=== PATIENT | female | born 1985 | race Caucasian/White ===

== ENCOUNTER → 2019-01-11 | Outpatient (CLI) | payer BC | END | disposition home or self-care (01) | LOC: LABWHC1 12:26 | PROVIDERS: ATTEND Obstetrics & Gynecology Obstetrics | DX: O20.0 Threatened abortion (principal) | CPT/HCPCS: 36415; 84702; 86850; 86900; 86901 ==

== ENCOUNTER → 2019-01-13 | Outpatient (CLI) | payer BC | LOC: LABWHC1 11:15 | PROVIDERS: ATTEND Obstetrics & Gynecology Obstetrics | DX: O20.0 Threatened abortion (principal) | CPT/HCPCS: 36415; 84702 ==

== ENCOUNTER 2019-01-21 16:17 | Emergency (ER) | payer BC ==
[2019-01-21 16:27] VITALS: BP 133/84; PULSE 90; RESP 18; TEMP 98.2
--- NOTE | 2019-01-21 17:42 | US ---
EXAMINATION TYPE: Transabdominal DATE OF EXAM: 01/21/2019 5:30 PM COMPARISON: NONE CLINICAL HISTORY: pain, bleeding, . Positive beta-hCG test. Patient had ultrasound performed at securities analyst office where they saw the baby and a heartbeat prior EXAM PERFORMED: EXAM MEASUREMENTS: GESTATIONAL AGE / DATING Physician Established: Not yet established Dates by LMP: (8 weeks/3 days) EDC: 08/29/18 Dates by First Scan: No previous available Dates by Current Scan for: No IUP seen at this time MATERNAL ANATOMY Uterus: 8.1 x 4.2 x 4.7cm Right Ovary: 2.8 x 1.7 x 2.0cm Left Ovary: not visualized Post CDS / Adnexa: wnl Presence of free fluid: no GESTATION / SURVEY IUP: No IUP seen at this time, probable demise Thick endo with probable clot seen in RODOLFO. Date of LMP: 11/23/18 Beta HcG (if available): Heterogeneous uterus with endometrium thickened up to 19 mm. No gestational sac, yolk sac, or p ole identified. No free fluid in pelvic cul-de-sac. Right ovary is seen. Left ovary not identified. No concerning adnexal masses seen. IMPRESSION: Given history of positive live IUP in OB office, ultrasound findings support the diagnosi s of intrauterine demise.
--- NOTE | 2019-01-21 17:44 | ED ---
Female Urogenital HPI - General Chief complaint: Vaginal Bleeding Stated complaint: 6 1/2 WEEKS AND BLEEDING Time Seen by Provider: 01/21/19 16:39 Source: patient, RN notes reviewed Mode of arrival: ambulatory Limitations: no limitations - History of Present Illness Initial comments: This is a 33-year-old female presents emergency Department chief complaint of vaginal bleeding early . Patient is seen /Dr lemus states that she has had 2 ultrasounds, lab work. Patient is O+ blood type on labs. Patient had an ultrasound on which showed heart activity. Patient had some brownish discharge on Wednesday states that she called Dr. Lemus was not concerned. Patient started having worsening cramping, bleeding today. She has passed a few clots. Patient is A0 currently approximately 6 weeks . - Related Data Allergies Allergy/AdvReac Type Severity Reaction Status Date / Time cephalexin [From Keflex] Allergy Rash/Hives Verified 01/21/19 16:23 iodine Allergy Anaphylaxis Verified 01/21/19 16:23 Quinolones Allergy Swelling Verified 01/21/19 16:23 Review of Systems ROS Statement: Those systems with pertinent positive or pertinent negative responses have been documented in the HPI. ROS Other: All systems not noted in ROS Statement are negative. Past Medical History Past Medical History: No Reported History History of Any Multi-Drug Resistant Organisms: None Reported Past Surgical History: Tonsillectomy Additional Past Surgical History / Comment(s): L knee osteotomy Past Psychological History: Anxiety Smoking Status: Never smoker Past Alcohol Use History: None Reported Past Drug Use History: None Reported General Exam Limitations: no limitations General appearance: alert, in no apparent distress Head exam: Present: atraumatic, normocephalic, normal inspection Neck exam: Present: normal inspection. Absent: tenderness, meningismus, ly mphadenopathy Respiratory exam: Present: normal lung sounds bilaterally. Absent: respiratory distress, wheezes, rales, rhonchi, stridor Cardiovascular Exam: Present: regular rate, normal rhythm, normal heart sounds. Absent: systolic murmur, diastolic murmur, rubs, gallop, clicks GI/Abdominal exam: Present: soft, tenderness (Mild suprapubic), normal bowel sounds. Absent: distended, guarding, rebound, rigid Back exam: Absent: CVA tenderness (R), CVA tenderness (L) Course Vital Signs 01/21/19 16:24 Temperature 98.2 F Pulse Rate 90 Respiratory 18 Rate Blood Pressure 133/84 O2 Sat by Pulse 100 Oximetry Medical Decision Making - Medical Decision Making Ultrasound shows demise is no heart activity as she had this on prior ultrasound. HCG has dropped from 9000 - 7000. Patient is having a moderate amount of cramping type pain but not excessive bleeding at this time. She will be given pain medication she is advised to contact her LAUNDROMAT MANAGER and return for any worsening symptoms. - Lab Data Lab Results 01/21/19 Range/Units 17:05 HCG, Quant 7817.5 mIU/mL Disposition Clinical Impression: Miscarriage Disposition: HOME SELF-CARE Condition: Stable Instructions (If sedation given, give patient instructions): Miscarriage (ED) Additional Instructions: Please return to the Emergency Department if symptoms worsen or any other concerns. Is patient prescribed a controlled substance at d/c from ED?: No Referrals: Nanci Bhatia MD [Primary Care Provider] - 1-2 days Time of Disposition: 17:48
[2019-01-21] MEDS ORDERED: HYDROmorphone 1 MG/ML 1 ML SYRINGE IM STA (17:47)
[2019-01-21] MEDS ORDERED: ACET/COD 300 MG/30 MG STARTER PACK 6 TAB BTL PO STA (17:47)
== END 2019-01-21 17:58 | disposition home or self-care (01) ==
LOC: EC 16:17
DX: O03.9 Complete or unspecified spontaneous abortion without complication (principal); Z3A.01 Less than 8 weeks gestation of pregnancy; Z88.1 Allergy status to other antibiotic agents; Z91.048 Other nonmedicinal substance allergy status
CPT/HCPCS: 36415; 84702; 76801; 76817; 99284; 96372; J1170

== ENCOUNTER → 2019-01-27 | Outpatient (CLI) | payer BC | LOC: LABWHC1 14:00 | PROVIDERS: ATTEND Obstetrics & Gynecology Obstetrics | DX: O03.9 Complete or unspecified spontaneous abortion without complication (principal) | CPT/HCPCS: 36415; 84702 ==

== ENCOUNTER → 2019-02-23 | Outpatient (CLI) | payer BC | END | disposition home or self-care (01) | LOC: LABWHC1 10:38 | PROVIDERS: ATTEND Obstetrics & Gynecology Obstetrics | DX: O02.1 Missed abortion (principal) | CPT/HCPCS: 36415; 84702 ==

== ENCOUNTER → 2019-12-13 | Outpatient (CLI) | payer BC | END | disposition home or self-care (01) | LOC: LABWHC1 14:16 | PROVIDERS: ATTEND Obstetrics & Gynecology Obstetrics | DX: N92.5 Other specified irregular menstruation (principal) | CPT/HCPCS: 36415; 84144; 84702 ==

== ENCOUNTER → 2019-12-15 | Outpatient (CLI) | payer BC | END | disposition home or self-care (01) | LOC: LABWHC1 14:54 | PROVIDERS: ATTEND Obstetrics & Gynecology Obstetrics | DX: N92.5 Other specified irregular menstruation (principal) | CPT/HCPCS: 36415; 84702 ==

== ENCOUNTER → 2019-12-21 | Outpatient (CLI) | payer BC | END | disposition home or self-care (01) | LOC: LABWHC1 13:55 | PROVIDERS: ATTEND Obstetrics & Gynecology Obstetrics | DX: O20.0 Threatened abortion (principal) | CPT/HCPCS: 36415; 84144; 84702 ==

== ENCOUNTER → 2020-01-24 | Outpatient (CLI) | payer BC | END | disposition home or self-care (01) | LOC: LABWHC1 12:10 | PROVIDERS: ATTEND Obstetrics & Gynecology Obstetrics | DX: Z03.818 Encounter for observation for suspected exposure to other biological agents ruled out (principal); Z20.828 Contact with and (suspected) exposure to other viral communicable diseases | CPT/HCPCS: 87502; U0003; C9803 ==

== ENCOUNTER 2020-05-09 11:00 | Outpatient (CLI) | payer BC ==
[2020-05-09] MEDS ORDERED: LACTATED RINGERS 1,000 ML IV SCH (11:45)
[2020-05-09 12:22] LABS: Appearance,Urine Clear (Clear); Bilirubin,Urine Negative (Negative); Blood,Urine Negative (Negative); Color,Urine Yellow; Glucose,Urine (UA) Negative (Negative); Ketones,Urine Negative (Negative); Leukocyte Esterase,Urine Negative (Negative); Nitrite,Urine Negative (Negative); Protein,Urine Negative (Negative); Specific Gravity,Urine 1.006 (1.001-1.035); Urobilinogen,Urine <2.0 mg/dL (<2.0)
[2020-05-09 12:29] LABS: Basophils % (A) 0 %; Eosinophils # (A) 0.2 k/uL (0-0.7); Eosinophils % (A) 2 %; HCT 40.6 % (34.0-46.0); HGB 13.5 gm/dL (11.4-16.0); Lymphocytes % (A) 17 %; MCH 29.7 pg (25.0-35.0); MCHC 33.3 g/dL (31.0-37.0); MCV 89.3 fL (80.0-100.0); Mean Platelet Volume 7.8; Monocytes # (A) 0.3 k/uL (0-1.0); Monocytes % (A) 3 %; Neutrophils # (A) 8.8 k/uL (1.3-7.7); Neutrophils % (A) 77 %; Platelet Count 265 k/uL (150-450); RBC 4.54 m/uL (3.80-5.40); RDW 14.2 % (11.5-15.5); WBC 11.5 k/uL (3.8-10.6)
[2020-05-09 12:32] LABS: ALT 19 U/L (4-34); AST 23 U/L (14-36); African American GFR (CKD) >90 (>60 ml/min/1.73 sqM); Albumin 3.5 g/dL (3.5-5.0); Alkaline Phosphatase 78 U/L (38-126); Anion Gap 8 mmol/L; Blood Urea Nitrogen 10 mg/dL (7-17); Calcium 8.8 mg/dL (8.4-10.2); Carbon Dioxide 20 mmol/L (22-30); Chloride 104 mmol/L (98-107); Glucose 107 mg/dL (74-99); Non-African American GFR(CKD) >90 (>60 ml/min/1.73 sqM); Potassium 4.3 mmol/L (3.5-5.1); Sodium 132 mmol/L (137-145); Total Bilirubin 0.3 mg/dL (0.2-1.3); Total Protein 6.3 g/dL (6.3-8.2)
[2020-05-09 13:33] VITALS: RESP 16; TEMP 98.2
[2020-05-09 13:35] VITALS: BP 114/56; PULSE 83
== END 2020-05-09 13:42 | disposition home or self-care (01) ==
LOC: FBPOP 11:00
PROVIDERS: ATTEND Obstetrics & Gynecology Obstetrics
DX: O21.9 Vomiting of pregnancy, unspecified (principal); Z3A.00 Weeks of gestation of pregnancy not specified
CPT/HCPCS: 80053; 81003; 85025; 96360; 99215

== ENCOUNTER 2020-05-22 15:15 | Emergency (ER) | payer BC ==
[2020-05-22 15:23] VITALS: TEMP 98.1
[2020-05-22 15:43] LABS: Basophils % (A) 0 %; Eosinophils # (A) 0.1 k/uL (0-0.7); Eosinophils % (A) 2 %; HCT 41.5 % (34.0-46.0); HGB 14.5 gm/dL (11.4-16.0); Lymphocytes # (A) 1.7 k/uL (1.0-4.8); Lymphocytes % (A) 28 %; MCH 30.9 pg (25.0-35.0); MCHC 34.9 g/dL (31.0-37.0); MCV 88.7 fL (80.0-100.0); Mean Platelet Volume 7.7; Monocytes # (A) 0.4 k/uL (0-1.0); Monocytes % (A) 6 %; Neutrophils # (A) 3.8 k/uL (1.3-7.7); Neutrophils % (A) 62 %; Platelet Count 207 k/uL (150-450); RBC 4.67 m/uL (3.80-5.40); RDW 13.9 % (11.5-15.5); WBC 6.1 k/uL (3.8-10.6)
[2020-05-22 15:54] LABS: ALT 25 U/L (4-34); AST 29 U/L (14-36); African American GFR (CKD) >90 (>60 ml/min/1.73 sqM); Albumin 3.5 g/dL (3.5-5.0); Alkaline Phosphatase 72 U/L (38-126); Anion Gap 5 mmol/L; Blood Urea Nitrogen 5 mg/dL (7-17); Calcium 8.6 mg/dL (8.4-10.2); Carbon Dioxide 24 mmol/L (22-30); Chloride 104 mmol/L (98-107); Glucose 99 mg/dL (74-99); LDH 396 U/L (313-618); Magnesium 1.7 mg/dL (1.6-2.3); Non-African American GFR(CKD) >90 (>60 ml/min/1.73 sqM); Potassium 4.5 mmol/L (3.5-5.1); Sodium 133 mmol/L (137-145); Total Bilirubin 0.4 mg/dL (0.2-1.3); Total Protein 6.4 g/dL (6.3-8.2)
[2020-05-22 16:04] LABS: D-Dimer 0.57 mg/L FEU (<0.60); INR 0.8 (<1.2); Prothrombin Time 9.3 sec (9.0-12.0)
[2020-05-22] MEDS ORDERED: BAMLANIVIMAB (EUA) 700 MG, ETESEVIMAB (EUA) 1,400 MG in SODIUM CHLORIDE 0.9% 50 ML IVPB ONE (17:00)
--- NOTE | 2020-05-22 17:21 | ED ---
SOB HPI - General Chief Complaint: Shortness of Breath Stated Complaint: Sob/Covid+/27 wks preg Source: patient Mode of arrival: ambulatory Limitations: no limitations - History of Present Illness Initial Comments: Patient is a 34-year-old female with past medical history of MTHFR who presents to the emergency department with reported positive Covid test. Patient is a nurse in the emergency room. Reports that on Wednesday she began having "sinus symptoms". Also reports that she lost her sense of smell. She was tested today at her facility came back positive for covid. She does see a high risk v belt coverer out of [place] - Dr. Erik Toth. Reportedly called him who re commended that she receive monoclonal antibody treatment. Patient denies shortness of breath or chest pain. No lower externally swelling. No history of DVT or PE. Denies fevers. No nausea or vomiting. No other alleviating, precipitating or modifying factors - Related Data Allergies Allergy/AdvReac Type Severity Reaction Status Date / Time cephalexin [From Keflex] Allergy Rash/Hives Verified 01/21/19 16:23 iodine Allergy Anaphylaxis Verified 01/21/19 16:23 Quinolones Allergy Swelling Verified 01/21/19 16:23 Review of Systems ROS Statement: Those systems with pertinent positive or pertinent negative responses have been documented in the HPI. ROS Other: All systems not noted in ROS Statement are negative. Past Medical History Past Medical History: No Reported History History of Any Multi-Drug Resistant Organisms: None Reported Past Surgical History: Tonsillectomy Additional Past Surgical History / Comment(s): L knee osteotomy Past Psychological History: Anxiety Smoking Status: Never smoker Past Alcohol Use History: None Reported Past Drug Use History: None Reported General Exam Limitations: no limitations Course Vital Signs 05/22/20 05/22/20 15:19 18:15 Temperature 98.1 F Pulse Rate 98 80 Respiratory 24 16 Rate Blood Pressure 136/87 150/68 O2 Sat by Pulse 98 99 Oximetry Medical Decision Making - Medical Decision Making Upon arrival patient was placed into room 151. A thorough history and physical exam was performed. epoxy specialist/GYN is requesting a d-dimer on the patient. Laboratory studies were conducted which demonstrated d-dimer 0.57. Patient does receive monoclonal antibodies after speaking with Dr. Coyle from Infectious Disease. I spoke with the on-call highway patrol pilot out of [facility] at [phone]. They state d-dimer is within acceptable range. They recommend an NST. Patient does have activity on NST. She denies any vaginal complaints to include bleeding, cramping or discharge. This time the patient will be discharged home and is to follow-up with her OB within 2-4 days. Return to the emergency department for any new or worsening symptoms. Patient was discharged home in stable condition - Lab Data Result diagrams: 05/22/20 15:29 05/22/20 15:29 Lab Results 05/22/20 05/22/20 05/22/20 Range/Units 15:29 15:29 15:29 WBC 6.1 (3.8-10.6) k/uL RBC 4.67 (3.80-5.40) m/uL Hgb 14.5 (11.4-16.0) gm/dL Hct 41.5 (34.0-46.0) % MCV 88.7 (80.0-100.0) fL MCH 30.9 (25.0-35.0) pg MCHC 34.9 (31.0-37.0) g/dL RDW 13.9 (11.5-15.5) % Plt Count 207 (150-450) k/uL MPV 7.7 Neutrophils % 62 % Lymphocytes % 28 % Monocytes % 6 % Eosinophils % 2 % Basophils % 0 % Neutrophils # 3.8 (1.3-7.7) k/uL Lymphocytes # 1.7 (1.0-4.8) k/uL Monocytes # 0.4 (0-1.0) k/uL Eosinophils # 0.1 (0-0.7) k/uL Basophils # 0.0 (0-0.2) k/uL PT 9.3 (9.0-12.0) sec INR 0.8 (<1.2) APTT 23.0 (22.0-30.0) sec D-Dimer 0.57 (<0.60) mg/L FEU Sodium 133 L (137-145) mmol/L Potassium 4.5 (3.5-5.1) mmol/L Chloride 104 (98-107) mmol/L Carbon Dioxide 24 (22-30) mmol/L Anion Gap 5 mmol/L BUN 5 L (7-17) mg/dL Creatinine 0.40 L (0.52-1.04) mg/dL Est GFR (CKD-EPI)AfAm >90 (>60 ml/min/1.73 sqM) Est GFR (CKD-EPI)NonAf >90 (>60 ml/min/1.73 sqM) Glucose 99 (74-99) mg/dL Plasma Lactic Acid Severo (0.7-2.0) mmol/L Calcium 8.6 (8.4-10.2) mg/dL Magnesium 1.7 (1.6-2.3) mg/dL Total Bilirubin 0.4 (0.2-1.3) mg/dL AST 29 (14-36) U/L ALT 25 (4-34) U/L Alkaline Phosphatase 72 (38-126) U/L Lactate Dehydrogenase 396 (313-618) U/L C-Reactive Protein 19.0 H (<10.0) mg/L Total Protein 6.4 (6.3-8.2) g/dL Albumin 3.5 (3.5-5.0) g/dL 05/22/20 Range/Units 15:29 WBC (3.8-10.6) k/uL RBC (3.80-5.40) m/uL Hgb (11.4-16.0) gm/dL Hct (34.0-46.0) % MCV (80.0-100.0) fL MCH (25.0-35.0) pg MCHC (31.0-37.0) g/dL RDW (11.5-15.5) % Plt Count (150-450) k/uL MPV Neutrophils % % Lymphocytes % % Monocytes % % Eosinophils % % Basophils % % Neutrophils # (1.3-7.7) k/uL Lymphocytes # (1.0-4.8) k/uL Monocytes # (0-1.0) k/uL Eosinophils # (0-0.7) k/uL Basophils # (0-0.2) k/uL PT (9.0-12.0) sec INR (<1.2) APTT (22.0-30.0) sec D-Dimer (<0.60) mg/L FEU Sodium (137-145) mmol/L Potassium (3.5-5.1) mmol/L Chloride (98-107) mmol/L Carbon Dioxide (22-30) mmol/L Anion Gap mmol/L BUN (7-17) mg/dL Creatinine (0.52-1.04) mg/dL Est GFR (CKD-EPI)AfAm (>60 ml/min/1.73 sqM) Est GFR (CKD-EPI)NonAf (>60 ml/min/1.73 sqM) Glucose (74-99) mg/dL Plasma Lactic Acid Severo 0.9 (0.7-2.0) mmol/L Calcium (8.4-10.2) mg/dL Magnesium (1.6-2.3) mg/dL Total Bilirubin (0.2-1.3) mg/dL AST (14-36) U/L ALT (4-34) U/L Alkaline Phosphatase (38-126) U/L Lactate Dehydrogenase (313-618) U/L C-Reactive Protein (<10.0) mg/L Total Protein (6.3-8.2) g/dL Albumin (3.5-5.0) g/dL Disposition Clinical Impression: COVID-19, Third trimester Disposition: HOME SELF-CARE Condition: Stable Instructions (If sedation given, give patient instructions): Coronavirus Disease 2019 (COVID-19) Additional Instructions: Please folllow up with your OBGYN in 2-4 days. Return to the ED for any new or worsening symptoms. Is patient prescribed a controlled substance at d/c from ED?: No Referrals: Nonstaff,Physician [Primary Care Provider] - 1-2 days Time of Disposition: 17:24
[2020-05-22 18:18] VITALS: BP 150/68; PULSE 80; RESP 16
== END 2020-05-22 19:35 | disposition home or self-care (01) ==
LOC: EC 15:15
DX: O98.512 Other viral diseases complicating pregnancy, second trimester (principal); U07.1 COVID-19; O99.342 Other mental disorders complicating pregnancy, second trimester; F41.9 Anxiety disorder, unspecified; Z3A.27 27 weeks gestation of pregnancy
CPT/HCPCS: 36415; 85379; 80053; 83605; 83615; 83735; 85025; 85610; 85730; 86140; 84145; 99284; 96365; Q0245

== ENCOUNTER 2020-07-29 06:14 | Inpatient (IN) | payer BC ==
[2020-07-29] MEDS ORDERED: TERBUTALINE 1 MG/ML VIAL SQ PRN (06:50)
[2020-07-29] MEDS ORDERED: CLINDAMYCIN 900 MG in DEXTROSE 5% IN WATER 50 ML IVPB STA ×2 (06:50)
[2020-07-29] MEDS ORDERED: LIDOCAINE 0.5% (PF) 5 MG/ML (50 ML SDV) SQ PRN (06:50)
[2020-07-29] MEDS ORDERED: CARBOPROST TROMETHAMINE 250 MCG/ML 1 ML AMP IM PRN (06:50)
[2020-07-29] MEDS ORDERED: OXYTOCIN 10 UNIT/ML 1 ML VIAL IM PRN (06:50)
[2020-07-29] MEDS ORDERED: METHYLERGONOVINE 0.2 MG/ML 1 ML AMP IM PRN (06:50)
[2020-07-29 06:57] LABS: Glucose,Whole Blood 113 mg/dL (75-99)
[2020-07-29] MEDS ORDERED: OXYTOCIN 30 UNITS/500 ML NS 30 UNIT in SALINE 1 500ML.BAG IV SCH ×2 (07:00→10:15)
[2020-07-29] MEDS ORDERED: LACTATED RINGERS 1,000 ML IV SCH (07:00)
[2020-07-29 07:07] LABS: Basophils # (A) 0.1 k/uL (0-0.2); Basophils % (A) 0 %; Eosinophils # (A) 0.2 k/uL (0-0.7); Eosinophils % (A) 2 %; HCT 37.9 % (34.0-46.0); HGB 13.1 gm/dL (11.4-16.0); Lymphocytes # (A) 2.7 k/uL (1.0-4.8); Lymphocytes % (A) 21 %; MCH 30.4 pg (25.0-35.0); MCHC 34.5 g/dL (31.0-37.0); MCV 88.1 fL (80.0-100.0); Mean Platelet Volume 8.3; Monocytes # (A) 0.6 k/uL (0-1.0); Monocytes % (A) 5 %; Neutrophils # (A) 8.9 k/uL (1.3-7.7); Neutrophils % (A) 71 %; Platelet Count 220 k/uL (150-450); RDW 14.3 % (11.5-15.5); WBC 12.5 k/uL (3.8-10.6)
[2020-07-29] MEDS ORDERED: CITRIC ACID-SODIUM CITRATE 15 ML CUP PO ONE ×2 (08:53→08:55)
[2020-07-29] MEDS ORDERED: GENTAMICIN 500 MG in SODIUM CHLORIDE 0.9% 100 ML IVPB ONE (08:53)
[2020-07-29] MEDS ORDERED: LACTATED RINGERS 1,000 ML IV ONE (08:53)
[2020-07-29] MEDS ORDERED: OXYTOCIN 10 UNIT/ML 1 ML VIAL ONE (09:16)
[2020-07-29] MEDS ORDERED: ONDANSETRON 4 MG/2 ML VIAL ONE (09:16)
[2020-07-29] MEDS ORDERED: PHENYLEPHRINE-0.9% NACL SYG 1,000 MCG/10 ML SYRINGE ONE (09:16)
[2020-07-29] MEDS ORDERED: NALBUPHINE 10 MG/ML (1 ML AMP) ONE (09:16)
[2020-07-29] MEDS ORDERED: MORPHINE SULFATE (PF) 0.3 MG/0.3 ML SYR ONE (09:16)
[2020-07-29] MEDS ORDERED: ONDANSETRON 4 MG/2 ML VIAL IVP PRN (10:07)
[2020-07-29] MEDS ORDERED: NALOXONE 0.4 MG/ML 1 ML VIAL IV PRN ×2 (10:07→12:55)
[2020-07-29] MEDS ORDERED: METOCLOPRAMIDE 5 MG/ML 2 ML VIAL IVP PRN (10:07)
[2020-07-29] MEDS ORDERED: diphenhydrAMINE 50 MG CAP PO PRN (10:07)
[2020-07-29] MEDS ORDERED: ZOLPIDEM 5 MG TAB PO PRN (10:07)
[2020-07-29] MEDS ORDERED: SIMETHICONE 80 MG CHEWABLE PO PRN (10:07)
[2020-07-29] MEDS ORDERED: diphenhydrAMINE 50 MG/ML 1 ML VIAL IVP PRN (10:07)
[2020-07-29] MEDS ORDERED: diphenhydrAMINE 25 MG CAP PO PRN (10:07)
--- NOTE | 2020-07-29 10:12 | P.OP ---
Date of Procedure: 07/29/20 Preoperative Diagnosis: IUP at 37 weeks, insulin-dependent diabetes mellitus, polyhydramnios, unstable lie with breech presentation Postoperative Diagnosis: Same Procedure(s) Performed: Primary low transverse section Anesthesia: spinal Surgeon: Nanci Roberts Human Resources Executive Assistant #1: Jasson Chamorro Estimated Blood Loss (ml): 400 IV fluids (ml): 100 Urine output (ml): 1,000 Pathology: other (Placenta) Condition: stable Disposition: observation Indications for Procedure: Breech presentation Operative Findings: Male infant in nathalie breech presentation, weight of 7 lbs. 14 oz., Apgars of 8 and 9 at one and 5 minutes respectively. time of 940. Normal uterus tubes and ovaries were appreciated. Description of Procedure: Patient was seen back to the operating suite where spinal anesthesia was found be adequate by the anesthesia department. She was then prepped and draped in normal sterile fashion in the dorsal supine position. A Pfannenstiel skin incision was made the scalpel and carried through the underlying layer of fascia. Fascia was incised in the midline and the incision was extended laterally. The superior aspect of the fascial incision was then grasped ashley clamps, elevated and underlying rectus muscle was dissected off sharply. The inferior aspect of the fascial incision was then grasped with Hampton clamps, elevated and underlying rectus muscles dissected off sharply once again. The rectus muscles were in the midline the peritoneum was identified and entered. The bladder blade was then inserted into the pelvis. The vesicouterine peritoneum was identified and the bladder flap was created using sharp and blunt dissection. The bladder blade was then replaced into the pelvis. Hysterotomy incision was made with the scalpel the infant was encountered in a nathalie breech presentation and delivered in the usual fashion. The local cord was doubly clamped and cut and the was handed off to awaiting RN. The placenta was delivered manually and the uterus was cleared of all clots and debris. The uterus then delivered from the abdomen. The uterine incision was then closed with 0 Vicryl in a running locked fashion a second imbricating suture was performed. Bleeding was noted on the right-hand side of the uterine incision therefore a [id number] suture was used to obtain hemostasis. Uterus was then returned to the abdomen and hysterotomy incision was found to be hemostatic and the gutters were cleared of all clots and debris. The rectus muscles were inspected hemostasis was appreciated. The fascia was then closed with 0 Vicryl in a running fashion from one lateral edge the midline and the other lateral edge the midline. The subcutaneous tissue was then irrigated found to be hemostatic and closed with 3-0 Vicryl in a running fashion. The skin was then closed with 4-0 Vicryl in a running subcuticular fashion. Steri-Strips and sterile dressings were applied. All counts were noted to be correct 2 at the end of the procedure. Patient and tolerated delivery well and are resting comfortably
[2020-07-29] MEDS: ACETAMINOPHEN IV (For NPO) 1,000 MG in EMPTY BAG 1 BAG IVPB SCH (10:35)
[2020-07-29] MEDS: diphenhydrAMINE 50 MG/ML 1 ML VIAL IVP PRN (11:36)
[2020-07-29] MEDS ORDERED: MORPHINE SULFATE 2 MG/ML SYRINGE IVP PRN (12:55)
[2020-07-29] MEDS ORDERED: CLINDAMYCIN 900 MG in DEXTROSE 5% IN WATER 50 ML IVPB SCH ×2 (15:00)
[2020-07-29] MEDS: LACTATED RINGERS 1,000 ML IV SCH ×2 (16:38→19:28)
[2020-07-29] MEDS: ACETAMINOPHEN TAB 500 MG TAB PO SCH ×2 (19:28→23:27)
[2020-07-29] MEDS ORDERED: PROMETHAZINE 25 MG TAB PO PRN ×2 (20:05→22:47)
[2020-07-29] MEDS: SENNOSIDES-DOCUSATE SODIUM 1 EACH TAB PO SCH (21:50)
[2020-07-29] MEDS: IBUPROFEN IV 800 MG in SODIUM CHLORIDE 0.9% 250 ML IV SCH ×2 (21:51→22:46)
[2020-07-29 22:04] LABS: Glucose,Whole Blood 108 mg/dL (75-99)
[2020-07-29] MEDS: IBUPROFEN 600 MG TAB PO SCH ×2 (23:27→23:29)
[2020-07-30] MEDS: ACETAMINOPHEN IV (For NPO) 1,000 MG in EMPTY BAG 1 BAG IVPB SCH (01:01)
[2020-07-30] MEDS: diphenhydrAMINE 50 MG/ML 1 ML VIAL IVP PRN (01:02)
[2020-07-30] MEDS: LACTATED RINGERS 1,000 ML IV SCH (01:04)
[2020-07-30] MEDS: ACETAMINOPHEN TAB 500 MG TAB PO SCH ×3 (03:42→16:19)
[2020-07-30] MEDS: IBUPROFEN IV 800 MG in SODIUM CHLORIDE 0.9% 250 ML IV SCH (04:25)
[2020-07-30] MEDS: IBUPROFEN 600 MG TAB PO SCH ×3 (04:39→21:14)
[2020-07-30 06:45] LABS: Basophils % (A) 0 %; Eosinophils # (A) 0.2 k/uL (0-0.7); Eosinophils % (A) 2 %; HCT 33.2 % (34.0-46.0); HGB 11.5 gm/dL (11.4-16.0); Lymphocytes # (A) 2.4 k/uL (1.0-4.8); Lymphocytes % (A) 21 %; MCH 31.1 pg (25.0-35.0); MCHC 34.7 g/dL (31.0-37.0); MCV 89.6 fL (80.0-100.0); Mean Platelet Volume 8.5; Monocytes # (A) 0.6 k/uL (0-1.0); Monocytes % (A) 5 %; Neutrophils # (A) 8.1 k/uL (1.3-7.7); Neutrophils % (A) 71 %; Platelet Count 192 k/uL (150-450); RBC 3.71 m/uL (3.80-5.40); RDW 14.3 % (11.5-15.5); WBC 11.4 k/uL (3.8-10.6)
[2020-07-30 07:53] LABS: Glucose,Whole Blood 101 mg/dL (75-99)
[2020-07-30] MEDS: SENNOSIDES-DOCUSATE SODIUM 1 EACH TAB PO SCH ×2 (08:05→19:47)
[2020-07-30] MEDS: metFORMIN 500 MG TAB PO SCH ×2 (10:53→17:46)
--- NOTE | 2020-07-30 11:19 | P.PNOBGPC ---
Subjective - Subjective Principal diagnosis: POD 1 LTCS DM, unstable lie, polyhdramnios Interval history: Pt is feeling better this am, she did struggle with n/v after hte c section. she is ambulating and voiding without difficulty. remains in nursery on oxygen. Mood is good and she is in good spirits. she did tolerate liquids this am without n/v. lochia is minimal she is pumping Patient reports: Reports appetite normal, Reports voiding normally, Reports pain well controlled, Reports ambulating normally [place]: doing well (in special care nursery) Objective - Vital Signs Latest vital signs: Vital Signs Temp Pulse Resp BP Pulse Ox 07/30/20 08:44 18 07/30/20 08:43 100 07/30/20 08:00 98.5 F 74 18 132/75 100 07/30/20 06:04 18 07/30/20 04:50 16 98 07/30/20 04:30 98.3 F 79 18 119/80 99 07/30/20 03:00 16 07/30/20 00:44 18 99 07/30/20 00:00 98.2 F 85 16 137/82 98 07/29/20 23:00 18 07/29/20 21:00 18 99 07/29/20 20:00 98.2 F 77 16 148/76 100 07/29/20 19:00 16 07/29/20 17:55 18 99 07/29/20 16:00 98.3 F 68 18 120/75 99 07/29/20 15:55 16 07/29/20 13:55 18 98 07/29/20 12:55 18 07/29/20 12:45 61 18 95/50 99 07/29/20 12:40 100 07/29/20 12:17 67 18 108/57 100 07/29/20 12:00 67 18 108/57 100 07/29/20 11:47 98.3 F 79 16 99/56 99 07/29/20 11:17 68 16 99/55 97 Intake and Output 07/29/20 07/30/20 07/30/20 22:59 06:59 14:59 Output Total 1000 1300 400 Balance -1000 -1300 -400 Output: Urine 800 1300 400 Uretheral ([place]) 650 Emesis 200 Other: Voiding Method Indwelling Catheter Toilet # Voids 0 1 - Exam Extremities: Present: normal, edema Abdomen: Present: normal appearance, soft Incision: Present: dry, intact - Labs Labs: Abnormal Lab Results - Last 24 Hours (Table) 07/29/20 07/30/20 07/30/20 Range/Units 22:02 06:22 07:51 WBC 11.4 H (3.8-10.6) k/uL RBC 3.71 L (3.80-5.40) m/uL Hct 33.2 L (34.0-46.0) % Neutrophils # 8.1 H (1.3-7.7) k/uL POC Glucose (mg/dL) 108 H 101 H (75-99) mg/dL Assessment and Plan (1) 37 weeks gestation of Current Visit: Yes Status: Acute Code(s): Z3A.37 - 37 WEEKS GESTATION OF SNOMED Code(s): 75901024 (2) Diabetes Current Visit: Yes Status: Acute Code(s): E11.9 - TYPE 2 DIABETES MELLITUS WITHOUT COMPLICATIONS SNOMED Code(s): 35837703 (3) Polyhydramnios Current Visit: Yes Status: Acute Code(s): O40.9XX0 - POLYHYDRAMNIOS, UNSP TRIMESTER, NOT APPLICABLE OR UNSP SNOMED Code(s): 46384694 (4) S/P section Current Visit: Yes Status: Acute Code(s): Z98.891 - HISTORY OF UTERINE SCAR FROM PREVIOUS SURGERY SNOMED Code(s): 148650573 Plan: Patient is doing well postoperatively, will advance diet to carb consistent. encourage increased ambulation. she is to restart metformin and we will follow her BS. she will most likely have significantly lower insulin needs as she is now .
[2020-07-30 17:45] LABS: Glucose,Whole Blood 139 mg/dL (75-99)
[2020-07-30 21:10] LABS: Glucose,Whole Blood 152 mg/dL (75-99)
[2020-07-31] MEDS: ACETAMINOPHEN TAB 500 MG TAB PO SCH ×3 (00:45→15:43)
[2020-07-31] MEDS: IBUPROFEN 600 MG TAB PO SCH ×3 (03:15→19:28)
[2020-07-31 08:12] LABS: Glucose,Whole Blood 118 mg/dL (75-99)
--- NOTE | 2020-07-31 08:32 | P.PNOBGPC ---
Subjective - Subjective Principal diagnosis: POD 2 LTCS DM, polyhydramnios, breech Interval history: Patient did well overnight. Patient is ambulating and voiding without difficulty she did have a bowel movement over the night. She states her pain is well-controlled. She is pumping. She denies concerns. Lochia is minimal remains in the nursery on oxygen. Patient reports: Reports appetite normal, Reports voiding normally, Reports pain well controlled, Reports ambulating normally : doing well Objective - Vital Signs Latest vital signs: Vital Signs Temp Pulse Resp BP Pulse Ox 07/31/20 06:45 18 07/31/20 04:34 16 99 07/31/20 03:00 18 07/31/20 00:50 14 97 07/31/20 00:00 97.9 F 83 18 134/79 98 07/30/20 23:00 14 07/30/20 20:01 18 97 07/30/20 19:00 16 07/30/20 17:00 18 98 07/30/20 16:00 98.6 F 83 18 127/84 98 07/30/20 15:00 20 07/30/20 13:00 18 97 07/30/20 11:00 18 07/30/20 08:44 18 07/30/20 08:43 100 Intake and Output 07/30/20 07/31/20 07/31/20 22:59 06:59 14:59 Other: # Voids 2 2 - Exam Extremities: Present: normal, edema Abdomen: Present: normal appearance Incision: Present: normal, intact - Labs Labs: Abnormal Lab Results - Last 24 Hours (Table) 07/30/20 07/30/20 07/31/20 Range/Units 17:44 21:09 08:10 POC Glucose (mg/dL) 139 H 152 H 118 H (75-99) mg/dL Assessment and Plan (1) 37 weeks gestation of Current Visit: Yes Status: Acute Code(s): Z3A.37 - 37 WEEKS GESTATION OF SNOMED Code(s): 01334266 (2) Diabetes Current Visit: Yes Status: Acute Code(s): E11.9 - TYPE 2 DIABETES MELLITUS WITHOUT COMPLICATIONS SNOMED Code(s): 49482435 (3) Polyhydramnios Current Visit: Yes Status: Acute Code(s): O40.9XX0 - POLYHYDRAMNIOS, UNSP TRIMESTER, NOT APPLICABLE OR UNSP SNOMED Code(s): 44329693 (4) S/P section Current Visit: Yes Status: Acute Code(s): Z98.891 - HISTORY OF UTERINE SCAR FROM PREVIOUS SURGERY SNOMED Code(s): 767128489 Plan: Patient continues to do well postoperatively. We'll plan to continue routine postoperative care.
--- NOTE | 2020-07-31 11:04 | P.PN ---
Progress Note - Text Anesthesia POD 2. Patient is status post section under spinal anesthesia with intra-thecal preservative free morphine 300 g. Moderate pruritus (now resolved), good post-op analgesia, and no headache or other complications.
[2020-07-31 12:27] LABS: Glucose,Whole Blood 106 mg/dL (75-99)
[2020-07-31] MEDS: metFORMIN 500 MG TAB PO SCH ×2 (13:02→17:21)
[2020-07-31] MEDS: SENNOSIDES-DOCUSATE SODIUM 1 EACH TAB PO SCH ×2 (13:30→19:28)
[2020-07-31 17:20] LABS: Glucose,Whole Blood 101 mg/dL (75-99)
[2020-07-31 20:52] LABS: Glucose,Whole Blood 174 mg/dL (75-99)
[2020-08-01] MEDS: ACETAMINOPHEN TAB 500 MG TAB PO SCH ×2 (03:22→11:59)
[2020-08-01] MEDS: IBUPROFEN 600 MG TAB PO SCH ×2 (05:52→07:44)
[2020-08-01] MEDS: SENNOSIDES-DOCUSATE SODIUM 1 EACH TAB PO SCH (07:28)
[2020-08-01 07:43] LABS: Glucose,Whole Blood 108 mg/dL (75-99)
[2020-08-01] MEDS: metFORMIN 500 MG TAB PO SCH (07:44)
[2020-08-01 08:34] VITALS: BP 121/72; PULSE 72; RESP 17; TEMP 98.3
[2020-08-01 11:49] LABS: Glucose,Whole Blood 101 mg/dL (75-99)
--- NOTE | 2020-08-01 12:36 | P.DS ---
Providers Date of admission: 07/29/20 06:14 Expected date of discharge: 08/01/20 Attending physician: Nanci Roberts Primary care physician: Stated None - Discharge Diagnosis(es) (1) 37 weeks gestation of Current Visit: Yes Status: Acute (2) Diabetes Current Visit: Yes Status: Acute (3) Polyhydramnios Current Visit: Yes Status: Acute (4) S/P section Current Visit: Yes Status: Acute Hospital Course: This is a 35-year-old 3 para 10-1 status post primary for polyhydramnios with unstable lie, breech presentation after amniotomy. Patient is known diabetic and had been being followed by maternal- medicine with good sugar control. Patient was previously on insulin during her . Patient in addition had COVID-19 2 during this . For full details on this patient please see the dictated history and physical. Patient was admitted vertex presentation was noted on vaginal exam amniotomy was performed and after a large gush of clear flui exam revealed footling breech presentation. Therefore patient was taken for primary secondary to breech presentation. Patient delivered a liveborn male in breech presentation weight of 7 lbs. 14 oz. at 940, Apgars of 8 and 9 at one and 5 minutes respectively. Patient's course has been uneventful. On this day #3 she is ambulating and voiding without difficulty. She is tolerating a regular diet without nausea or vomiting. Her blood sugars have been well-controlled on oral metformin 500 mg twice daily, 1 pill prior to breakfast, 1 pill prior to dinner. Patient is breast-feeding without difficulty. She states her lochia is minimal. Her pain is well-controlled with Tylenol and ibuprofen. She does wish discharge home. Patient Condition at Discharge: Good Plan - Discharge Summary Follow up Appointment(s)/Referral(s): Nanci Roberts DO [Doctor of Osteopathic Medicine] - 2 Weeks Patient Instructions/Handouts: (DC) Discharge Disposition: HOME SELF-CARE
== END 2020-08-01 15:40 | disposition home or self-care (01) | DRG 788 ==
LOC: 4FBP 06:14
PROVIDERS: ADMIT Obstetrics & Gynecology Obstetrics; ATTEND Obstetrics & Gynecology Obstetrics
PROC: 10D00Z1 Extraction of Products of Conception, Low, Open Approach (ICD-10-PCS; principal; 2020-07-29 09:34)
DX: O32.0XX0 Maternal care for unstable lie, not applicable or unspecified (principal); O32.8XX0 Maternal care for other malpresentation of fetus, not applicable or unspecified; O24.92 Unspecified diabetes mellitus in childbirth; O40.3XX0 Polyhydramnios, third trimester, not applicable or unspecified; Z37.0 Single live birth; Z3A.37 37 weeks gestation of pregnancy; Z79.4 Long term (current) use of insulin
CPT/HCPCS: 85025; 86850; 86900; 86901

== ENCOUNTER 2022-08-13 00:09 | Observation (INO) | payer BC ==
[2022-08-13] MEDS ORDERED: SODIUM CHLORIDE 0.9% 500 ML 500 ML IV STA (00:23)
[2022-08-13] MEDS ORDERED: ONDANSETRON 4 MG/2 ML VIAL IVP STA (00:23)
[2022-08-13] MEDS ORDERED: PANTOPRAZOLE 40 MG/10 ML VIAL IVP STA (00:24)
--- NOTE | 2022-08-13 00:28 | ED ---
Abdominal Pain HPI - General Chief Complaint: Abdominal Pain Stated Complaint: Right Upper Quadrant Pain Time Seen by Provider: 08/13/22 00:17 Source: patient, RN notes reviewed, old records reviewed Mode of arrival: ambulatory Limitations: no limitations - History of Present Illness Initial Comments: 37-year-old well-appearing female presents to the emergency room with right upper quadrant pain that started around 5:30 this evening after eating a burger. Patient states she started to feel bloated with epigastric pain. She did go to sleep around 9:30 woke up at 10:30 with sharp cramping right upper quadrant pain radiating into her back. She does have some nausea but denies any vomiting. No fevers. No diarrhea. States this happened a month ago after eating but resolved and never seen a doctor. Patient is a nonsmoker, states does not drink alcohol on a daily basis. -: hour(s) (6) Location: RUQ Radiation: back Severity scale (1-10): 7 Quality: cramping, sharp Consistency: constant Improves With: nothing Treatments Prior to Arrival: other (pepto and tums) - Related Data Allergies Allergy/AdvReac Type Severity Reaction Status Date / Time avocado Allergy Rash/Hives Verified 08/13/22 00:11 bee venom protein (honey bee) Allergy Rash/Hives Verified 08/13/22 00:11 cephalexin [From Keflex] Allergy Rash/Hives Verified 08/13/22 00:11 iodine Allergy Anaphylaxis Verified 08/13/22 00:11 latex Allergy Rash/Hives Verified 08/13/22 00:11 Quinolones Allergy Swelling Verified 08/13/22 00:11 shellfish derived [Shellfish] Allergy Anaphylaxis Verified 08/13/22 00:11 Review of Systems ROS Statement: Those systems with pertinent positive or pertinent negative responses have been documented in the HPI. ROS Other: All systems not noted in ROS Statement are negative. Past Medical History Past Medical History: No Reported History Additional Past Medical History / Comment(s): AMA, GEST DIABETES-INSULIN, HYPOTHYROIDISM, DEPRESSION/ANXIETY, COVID X 2 DURING , MTHFR, POLYHYDRAMNIOUS,MULTIPLE ALLERGIES History of Any Multi-Drug Resistant Organisms: None Reported Past Surgical History: Tonsillectomy Additional Past Surgical History / Comment(s): L knee osteotomy Past Anesthesia/Blood Transfusion Reactions: No Reported Reaction Past Psychological History: Anxiety Smoking Status: Never smoker Past Alcohol Use History: None Reported Past Drug Use History: None Reported - Past Family History Father Family Medical History: No Reported History General Exam Limitations: no limitations General appearance: alert, in no apparent distress Head exam: Present: atraumatic, normocephalic Eye exam: Present: normal appearance. Absent: scleral icterus, conjunctival injection, periorbital swelling ENT exam: Present: mucous membranes moist Neck exam: Present: full ROM. Absent: meningismus Respiratory exam: Absent: respiratory distress, accessory muscle use Cardiovascular Exam: Present: regular rate GI/Abdominal exam: Present: soft, tenderness (Epigastric right upper quadrant). Absent: distended, guarding, rebound, rigid Extremities exam: Present: normal capillary refill. Absent: pedal edema Neurological exam: Present: alert, oriented X3 Psychiatric exam: Present: normal affect, normal mood Skin exam: Present: warm, dry, normal color. Absent: cyanosis, diaphoretic, pallor Course Vital Signs 08/13/22 00:11 Temperature 97.7 F Pulse Rate 85 Respiratory 16 Rate Blood Pressure 141/78 O2 Sat by Pulse 98 Oximetry - Reevaluation(s) Reevaluation #1: 08/13/22 02:[address] Escudero regarding acute cholecystitis, antibiotics started Time: 02:37 Medical Decision Making - Medical Decision Making Was pt. sent in by a medical professional or institution (, PA, ULTRASONIC SEAMING MACHINE OPERATOR, urgent care, hospital, or alf...) When possible be specific @ -[No] Did you speak to anyone other than the patient for history (EMS, parent, family, police, friend...)? What history was obtained from this source @ -[No] Did you review nursing and triage notes (agree or disagree)? Why? @ -[I reviewed and agree with nursing and triage notes] Were old charts reviewed (outside hosp., previous admission, EMS record, old EKG, old radiological studies, urgent care reports/EKG's, alf records)? Report findings @ -[No old charts were reviewed] Differential Diagnosis (chest pain, altered mental status, abdominal pain women, abdominal pain men, vaginal bleeding, weakness, fever, dyspnea, syncope, headache, dizziness, GI bleed, back pain, seizure, CVA, palpatations, mental health, musculoskeletal)? @ -Differential Abdominal Pain Women: Appendicitis, Cholecystitis, diverticulosis, ischemic bowel, pancreatitis, hepatitis, UTI, gastroenteritis, AAA, incarcerated hernia, bowel obstruction, constipation, inflammatory bowel, hepatitis, peptic ulcer disease, splenic infarction, perforated viscus, vulvitis, ovarian torsion, PID, kidney stone, placenta abruption, this is not meant to be an all-inclusive list EKG interpreted by me (3pts min.). @ -yes EKG interpreted by me shows sinus rhythm with a ventricular rate of 74, OH interval 0.169, QRS 0.100, QTC 0.400, normal axis, no old EKG to compare. X-rays interpreted by me (1pt min.). @ -[None done] CT interpreted by me (1pt min.). @ -[None done] U/S interpreted by me (1pt. min.). @ -no What testing was considered but not performed or refused? (CT, X-rays, U/S, labs)? Why? @ -[None] What meds were considered but not given or refused? Why? @ -[None] Did you discuss the management of the patient with other professionals (professionals i.e. , PA, ULTRASONIC SEAMING MACHINE OPERATOR, lab, RT, psych nurse, social welfare research worker, family partner, teacher, training and development officer, mental health case manager)? Give summary @ -Case discussed with surgeon Dr. Escudero Was smoking cessation discussed for >3mins.? @ -[No] Was critical care preformed (if so, how long)? @ -[No] Were there social determinants of health that impacted care today? How? (Homelessness, low income, unemployed, alcoholism, drug addiction, trans portation, low edu. Level, literacy, decrease access to med. care, care home, rehab)? @ -[No] Was there de-escalation of care discussed even if they declined (Discuss DNR or withdrawal of care, Hospice)? DNR status @ -[No] What co-morbidities impacted this encounter? (DM, HTN, Smoking, COPD, CAD, Cancer, CVA, ARF, Chemo, Hep., AIDS, mental health diagnosis, sleep apnea, morbid obesity)? @ -Obesity, depression, anxiety, gestational diabetes Was patient admitted / discharged? Hospital course, mention meds given and route, prescriptions, significant lab abnormalities, going to OR and other pertinent info. @ -Admitted 37-year-old well-appearing female presents to the emergency room with right upper quadrant pain that started around 5:30 this evening after eating a burger. Patient states she started to feel bloated with epigastric pain. She did go to sleep around 9:30 woke up at 10:30 with sharp cramping right upper quadrant pain radiating into her back. She does have some nausea but denies any vomiting. No fevers. No diarrhea. States this happened a month ago after eating but resolved and never seen a doctor. Patient is a nonsmoker, states does not drink alcohol on a daily basis. EKG interpreted by me shows sinus rhythm with a ventricular rate of 74, OH interval 0.169, QRS 0.100, QTC 0.400, normal axis, no old EKG to compare. Troponin negative at 0.02. Lactic acid 2.0 CBC shows a mild leukocytosis with a left shift. Blood glucose level 176. Vital signs are stable patient is afebrile. Ultrasound gallbladder shows multiple gallbladder stones with no gallbladder wall thickening. Query minimal. Cholecystic fluid. Findings are equivocal for acute cholecystitis. Common bile duct 2.4 mm. No stones. No dilatation. Enlarged liver. May represent hepatic steatosis or other hepatic infiltrative process. Patient was given pain medication in addition to antiemetics with good pain control and no further nausea. Observed resting on the cart in no acute distress. IV antibiotics were started for acute cholecystitis. Dr. Escudero was notified and patient will be taken for cholecystectomy today. Patient was advised of the results and she is agreeable to this plan of care. Case discussed with Dr. Abebe Undiagnosed new problem with uncertain prognosis? @ -[No] Drug Therapy requiring intensive monitoring for toxicity (Heparin, Nitro, Insulin, Cardizem)? @ -[No] Were any procedures done? @ -[No] Diagnosis/symptom? @ -Acute cholecystitis Acute, or Chronic, or Acute on Chronic? @ -Acute Uncomplicated (without systemic symptoms) or Complicated (systemic symptoms)? @ -Complicated Side effects of treatment? @ -[No] Exacerbation, Progression, or Severe Exacerbation? @ -[No] Poses a threat to life or bodily function? How? (Chest pain, [place], [place], pneumonia, PE, COPD, DKA, ARF, appy, cholecystitis, CVA, Diverticulitis, Homicidal, Suicidal, threat to staff... and all critical care pts) @ -yes , could become complicated causing sepsis and - Lab Data Result diagrams: 08/13/22 01:08/13/22 01: Lab Results 08/13/22 08/13/22 08/13/22 Range/Units 01: 01: 01:29 WBC 13.1 H (3.8-10.6) k/uL RBC 5.09 (3.80-5.40) m/uL Hgb 14.4 (11.4-16.0) gm/dL Hct 43.3 (34.0-46.0) % MCV 85.0 (80.0-100.0) fL MCH 28.2 (25.0-35.0) pg MCHC 33.2 (31.0-37.0) g/dL RDW 13.4 (11.5-15.5) % Plt Count 285 (150-450) k/uL MPV 8.0 Neutrophils % 63 % Lymphocytes % 29 % Monocytes % 3 % Eosinophils % 3 % Basophils % 1 % Neutrophils # 8.2 H (1.3-7.7) k/uL Lymphocytes # 3.8 (1.0-4.8) k/uL Monocytes # 0.4 (0-1.0) k/uL Eosinophils # 0.4 (0-0.7) k/uL Basophils # 0.1 (0-0.2) k/uL Sodium 134 L (137-145) mmol/L Potassium 5.0 (3.5-5.1) mmol/L Chloride 99 (98-107) mmol/L Carbon Dioxide 28 (22-30) mmol/L Anion Gap 7 mmol/L BUN 11 (7-17) mg/dL Creatinine 0.40 L (0.52-1.04) mg/dL Est GFR (CKD-EPI)AfAm >90 (>60 ml/min/1.73 sqM) Est GFR (CKD-EPI)NonAf >90 (>60 ml/min/1.73 sqM) Glucose 176 H (74-99) mg/dL Plasma Lactic Acid Severo (0.7-2.0) mmol/L Calcium 9.9 (8.4-10.2) mg/dL Total Bilirubin 0.7 (0.2-1.3) mg/dL AST 33 (14-36) U/L ALT 20 (4-34) U/L Alkaline Phosphatase 121 (38-126) U/L Troponin I <0.012 (0.000-0.034) ng/mL Total Protein 7.1 (6.3-8.2) g/dL Albumin 4.0 (3.5-5.0) g/dL Amylase 58 (30-110) U/L Lipase 227 (23-300) U/L 08/13/22 Range/Units 01:29 WBC (3.8-10.6) k/uL RBC (3.80-5.40) m/uL Hgb (11.4-16.0) gm/dL Hct (34.0-46.0) % MCV (80.0-100.0) fL MCH (25.0-35.0) pg MCHC (31.0-37.0) g/dL RDW (11.5-15.5) % Plt Count (150-450) k/uL MPV Neutrophils % % Lymphocytes % % Monocytes % % Eosinophils % % Basophils % % Neutrophils # (1.3-7.7) k/uL Lymphocytes # (1.0-4.8) k/uL Monocytes # (0-1.0) k/uL Eosinophils # (0-0.7) k/uL Basophils # (0-0.2) k/uL Sodium (137-145) mmol/L Potassium (3.5-5.1) mmol/L Chloride (98-107) mmol/L Carbon Dioxide (22-30) mmol/L Anion Gap mmol/L BUN (7-17) mg/dL Creatinine (0.52-1.04) mg/dL Est GFR (CKD-EPI)AfAm (>60 ml/min/1.73 sqM) Est GFR (CKD-EPI)NonAf (>60 ml/min/1.73 sqM) Glucose (74-99) mg/dL Plasma Lactic Acid Severo 2.0 (0.7-2.0) mmol/L Calcium (8.4-10.2) mg/dL Total Bilirubin (0.2-1.3) mg/dL AST (14-36) U/L ALT (4-34) U/L Alkaline Phosphatase (38-126) U/L Troponin I (0.000-0.034) ng/mL Total Protein (6.3-8.2) g/dL Albumin (3.5-5.0) g/dL Amylase (30-110) U/L Lipase (23-300) U/L - EKG Data -: EKG Interpreted by Me EKG shows normal: sinus rhythm (EKG interpreted by me shows sinus rhythm with a ventricular rate of 74, OH interval 0.169, QRS 0.100, QTC 0.400, normal axis, no old EKG to compare.) Disposition Clinical Impression: Acute cholecystitis Disposition: ADMITTED IP TO THIS [facility] Decision Date: 08/13/22 Decision Time: 02:38
[2022-08-13] MEDS ORDERED: HYDROmorphone 0.5 MG/0.5 ML SYRINGE IVP STA (01:32)
[2022-08-13 01:37] LABS: Basophils # (A) 0.1 k/uL (0-0.2); Basophils % (A) 1 %; Eosinophils # (A) 0.4 k/uL (0-0.7); Eosinophils % (A) 3 %; HCT 43.3 % (34.0-46.0); HGB 14.4 gm/dL (11.4-16.0); Lymphocytes # (A) 3.8 k/uL (1.0-4.8); Lymphocytes % (A) 29 %; MCH 28.2 pg (25.0-35.0); MCHC 33.2 g/dL (31.0-37.0); Monocytes # (A) 0.4 k/uL (0-1.0); Monocytes % (A) 3 %; Neutrophils # (A) 8.2 k/uL (1.3-7.7); Neutrophils % (A) 63 %; Platelet Count 285 k/uL (150-450); RBC 5.09 m/uL (3.80-5.40); RDW 13.4 % (11.5-15.5); WBC 13.1 k/uL (3.8-10.6)
--- NOTE | 2022-08-13 01:48 | US ---
EXAM: US Abdomen Limited, Gallbladder CLINICAL HISTORY: ITS.REASON US Reason: ruq pain TECHNIQUE: Real-time ultrasound of the right upper quadrant with image documentation. COMPARISON: No relevant prior studies available. FINDINGS: Liver: Heterogeneous, enlarged liver. 20.0 cm in length. Gallbladder: Negative sonographic Pearce sign. Multiple gallbladder stones. No gallbladder wall thickening. Query minimal pericholecystic fluid. Common bile duct: Common bile duct 2.4 mm. No stones. No dilation. Pancreas: Unremarkable as visualized. IMPRESSION: 1. Multiple gallbladder stones. No gallbladder wall thickening. Query minimal pericholecystic fluid. Findings are equivocal for acute cholecystitis. 2. Heterogeneous, enlarged liver. May represent hepatic steatosis or other hepatic infiltrative process.
[2022-08-13 01:49] LABS: ALT 20 U/L (4-34); African American GFR (CKD) >90 (>60 ml/min/1.73 sqM); Amylase 58 U/L (30-110); Anion Gap 7 mmol/L; Blood Urea Nitrogen 11 mg/dL (7-17); Calcium 9.9 mg/dL (8.4-10.2); Carbon Dioxide 28 mmol/L (22-30); Chloride 99 mmol/L (98-107); Glucose 176 mg/dL (74-99); Lipase 227 U/L (23-300); Non-African American GFR(CKD) >90 (>60 ml/min/1.73 sqM); Sodium 134 mmol/L (137-145)
[2022-08-13 02:01] LABS: AST 33 U/L (14-36); Alkaline Phosphatase 121 U/L (38-126); Total Bilirubin 0.7 mg/dL (0.2-1.3); Total Protein 7.1 g/dL (6.3-8.2)
[2022-08-13] MEDS ORDERED: metroNIDAZOLE-NS PMX 500 MG in SALINE 1 100ML.BAG IVPB STA (02:13)
[2022-08-13] MEDS ORDERED: cefTRIAXone IN SWFI 1,000 MG/10 ML SYRINGE IVP STA (02:14)
[2022-08-13] MEDS ORDERED: NALOXONE 0.4 MG/ML 1 ML VIAL IV PRN (02:38)
[2022-08-13] MEDS: SODIUM CHLORIDE 0.9% 1,000 ML IV SCH ×4 (03:16→15:38)
[2022-08-13] MEDS: HYDROmorphone 0.5 MG/0.5 ML SYRINGE IVP PRN ×3 (04:02→20:41)
[2022-08-13] MEDS: ONDANSETRON 4 MG/2 ML VIAL IVP PRN ×2 (09:26→13:30)
[2022-08-13] MEDS: PIPERACILLIN-TAZOBACTAM 3.375 GM in SODIUM CHLORIDE 0.9% 100 ML IVPB SCH ×2 (09:44→13:30)
--- NOTE | 2022-08-13 11:07 | P.GSHP ---
History of Present Illness H&P Date: 08/13/22 CHIEF COMPLAINT: Right upper quadrant abdominal pain HISTORY OF PRESENT ILLNESS: This is a 37-year-old female who presents to the hospital with complaints of right upper quadrant abdominal pain around 11:30 last night. Patient reports the pain became very severe was rating it 10 out of 10. The pain is located in the right upper quadrant and radiates around to the back. She has been having nausea. She had similar symptoms that occurred about a month ago on that did improve with Tums and Pepto-Bismol. This time the Tums and Pepto-Bismol did not work. She did eat a hot dog yesterday around lunchtime and hamburger for dinner. Patient denies any cardiac history. Surgical history does include . She also has MTHFR gene mutation history. Patient had a ultrasound completed that showed multiple gallstones and minimal pericholecystic fluid and correlate for acute cholecystitis. Patient started on IV antibiotics and is scheduled for laparoscopic cholecystectomy today. She den ies any fever chills or sweats. PAST MEDICAL HISTORY: See below PAST SURGICAL HISTORY: See below MEDICATIONS: See below ALLERGIES: See below SOCIAL HISTORY: No illicit drug use. REVIEW OF SYSTEMS: CONSTITUTIONAL: Denies fever or chills. HEENT: Denies blurred vision, vision changes, or eye pain. Denies hemoptysis CARDIOVASCULAR: Denies chest pain or pressure. RESPIRATORY: No shortness of breath. GASTROINTESTINAL: See HPI for pertinent findings HEMATOLOGIC: Denies bleeding disorders. GENITOURINARY: Denies any blood in urine or increased urinary frequency. SKIN: Denies pruitis. Denies rash. PHYSICAL EXAM: VITAL SIGNS: Reviewed GENERAL: Well-developed in no acute distress. HEENT: No sclera icterus. Extraocular movements grossly intact. Moist buccal mucosa. Head is atraumatic, normocephalic. No nasal drainage. ABDOMEN: Soft. Nondistended. Right upper quadrant tenderness with palpation NEUROLOGIC: Alert and oriented. Cranial nerves II through XII grossly intact. LABORATORY DATA: WBC 13.1 Hgb 14.4 platelets 285 Sodium 134 potassium 5.0 creatinine 0.40 Lactic acid 2.0 LFTs normal Lipase 227 Troponin negative IMAGING: Abdominal ultrasound multiple gallbladder stones. No gallbladder wall thickening. Query minimal pericholecystic fluid. Findings are equivocal for acute cholecystitis. Heterogenous, enlarged liver. May represent hepatic steatosis or other hepatic infiltrative process ASSESSMENT: 1. Acute calculus cholecystitis PLAN: -Patient scheduled for laparoscopic cholecystectomy today with Dr. Escudero -Keep patient nothing by mouth -Continue IV antibiotics -Continue antiemetics as needed -Continue pain medication Physician Integrated Logistics Support Manager note has been reviewed by physician. Signing provider agrees with the documented findings, assessment, and plan of care. I have personally seen and examined the patient, reviewed the GUEST RELATIONS COORDINATOR /PAs history, exam and MDM and agree with the assessment and plan as written. Based on total visit time, I have performed more than 50% of the visit. As above: Patient with symptoms, exam, and diagnostics consistent with acute calculus cholecystitis. Medical scenario reviewed with the patient in detail. We'll proceed with laparoscopic, possible open cholecystectomy at this time. Risks of bleeding, infection, bile leak, bile duct injury, retained common bile duct stone, trocar injury, conversion to an open procedure, hernia, anesthesia related complications were reviewed. The patient understands and wishes to proceed. Past Medical History Past Medical History: No Reported History Additional Past Medical History / Comment(s): AMA, GEST DIABETES-INSULIN, HYPOTHYROIDISM, DEPRESSION/ANXIETY, COVID X 2 DURING , MTHFR, POLYHYDRAMNIOUS,MULTIPLE ALLERGIES History of Any Multi-Drug Resistant Organisms: None Reported Past Surgical History: Tonsillectomy Additional Past Surgical History / Comment(s): L knee osteotomy Past Anesthesia/Blood Transfusion Reactions: No Reported Reaction Past Psychological History: Anxiety Smoking Status: Never smoker Past Alcohol Use History: None Reported Past Drug Use History: None Reported - Past Family History Father Family Medical History: No Reported History Medications and Allergies Home Medications Medication Instructions Recorded Confirmed Type Aspirin EC [Ecotrin Low Dose] 81 mg PO DAILY 08/13/22 08/13/22 History Levothyroxine Sodium [Synthroid] 25 mcg PO DAILY 08/13/22 08/13/22 History metFORMIN HCL 1,000 mg PO BID 08/13/22 08/13/22 History Allergies Allergy/AdvReac Type Severity Reaction Status Date / Time avocado Allergy Rash/Hives Verified 08/13/22 07:22 bee venom protein (honey bee) Allergy Rash/Hives Verified 08/13/22 07:22 cephalexin [From Keflex] Allergy Rash/Hives Verified 08/13/22 07:22 iodine Allergy Anaphylaxis Verified 08/13/22 07:22 latex Allergy Rash/Hives Verified 08/13/22 07:22 Quinolones Allergy Swelling Verified 08/13/22 07:22 shellfish derived [Shellfish] Allergy Anaphylaxis Verified 08/13/22 07:22 Surgical - Exam Vital Signs Temp Pulse Resp BP Pulse Ox 97.7 F 85 16 141/78 98 08/13/22 00:11 08/13/22 00:11 08/13/22 00:11 08/13/22 00:11 08/13/22 00:11 Results - Labs 08/13/22 01:29 08/13/22 01:29 Abnormal Lab Results - Last 24 Hours (Table) 08/13/22 08/13/22 Range/Units 01:29 01:29 WBC 13.1 H (3.8-10.6) k/uL Neutrophils # 8.2 H (1.3-7.7) k/uL Sodium 134 L (137-145) mmol/L Creatinine 0.40 L (0.52-1.04) mg/dL Glucose 176 H (74-99) mg/dL Diabetes panel 08/13/22 Range/Units 01:29 Sodium 134 L (137-145) mmol/L Potassium 5.0 (3.5-5.1) mmol/L Chloride 99 (98-107) mmol/L Carbon Dioxide 28 (22-30) mmol/L BUN 11 (7-17) mg/dL Creatinine 0.40 L (0.52-1.04) mg/dL Glucose 176 H (74-99) mg/dL Calcium 9.9 (8.4-10.2) mg/dL AST 33 (14-36) U/L ALT 20 (4-34) U/L Alkaline Phosphatase 121 (38-126) U/L Total Protein 7.1 (6.3-8.2) g/dL Albumin 4.0 (3.5-5.0) g/dL Calcium panel 08/13/22 Range/Units 01:29 Calcium 9.9 (8.4-10.2) mg/dL Albumin 4.0 (3.5-5.0) g/dL Pituitary panel 08/13/22 Range/Units 01:29 Sodium 134 L (137-145) mmol/L Potassium 5.0 (3.5-5.1) mmol/L Chloride 99 (98-107) mmol/L Carbon Dioxide 28 (22-30) mmol/L BUN 11 (7-17) mg/dL Creatinine 0.40 L (0.52-1.04) mg/dL Glucose 176 H (74-99) mg/dL Calcium 9.9 (8.4-10.2) mg/dL Adrenal panel 08/13/22 Range/Units 01:29 Sodium 134 L (137-145) mmol/L Potassium 5.0 (3.5-5.1) mmol/L Chloride 99 (98-107) mmol/L Carbon Dioxide 28 (22-30) mmol/L BUN 11 (7-17) mg/dL Creatinine 0.40 L (0.52-1.04) mg/dL Glucose 176 H (74-99) mg/dL Calcium 9.9 (8.4-10.2) mg/dL Total Bilirubin 0.7 (0.2-1.3) mg/dL AST 33 (14-36) U/L ALT 20 (4-34) U/L Alkaline Phosphatase 121 (38-126) U/L Total Protein 7.1 (6.3-8.2) g/dL Albumin 4.0 (3.5-5.0) g/dL
[2022-08-13] MEDS ORDERED: IV FLUID CONTINUATION 800 ML IV ONE (13:08)
[2022-08-13] MEDS ORDERED: HEPARIN SODIUM,PORCINE/PF 5,000 UNIT/0.5 ML SYRINGE SQ ONE (13:16)
[2022-08-13] MEDS ORDERED: ACETAMINOPHEN TAB 500 MG TAB ONE (13:16)
[2022-08-13] MEDS ORDERED: GLYCOPYRROLATE 0.2 MG/ML 2 ML VIAL ONE (13:24)
[2022-08-13] MEDS ORDERED: PROPOFOL 10 MG/ML 20 ML VIAL IV ONE (13:24)
[2022-08-13] MEDS ORDERED: ROCURONIUM 10 MG/ML (5 ML VIAL) IV ONE (13:24)
[2022-08-13] MEDS ORDERED: fentaNYL (PF) 50 MCG/ML 2 ML AMP ONE (13:24)
[2022-08-13] MEDS ORDERED: SUCCINYLCHOLINE CHLORIDE 200 MG/10 ML VIAL IV ONE (13:24)
[2022-08-13] MEDS ORDERED: HYDROmorphone (PF) 1 MG/ML ONE (13:24)
[2022-08-13] MEDS ORDERED: NEOSTIGMINE 1 MG/ML 10 ML VIAL ONE (13:24)
[2022-08-13] MEDS ORDERED: MIDAZOLAM 2 MG/2 ML VIAL ONE (13:24)
[2022-08-13] MEDS ORDERED: SCOPOLAMINE 1 MG/72 HR PATCH TRANSDERM ONE (13:30)
[2022-08-13] MEDS ORDERED: DEXAMETHASONE SOD PHOSPHATE 4 MG/ML 1 ML VIAL IVP ONE (13:30)
[2022-08-13] MEDS ORDERED: BUPIVACAINE (PF) 0.25% 30 ML VIAL SQ ONE ×3 (13:42→13:50)
[2022-08-13] MEDS ORDERED: HYDROmorphone 1 MG/ML 1 ML SYRINGE IVP PRN (14:24)
[2022-08-13] MEDS ORDERED: HYDROcodone/APAP 5-325MG 1 EACH TAB PO PRN (14:24)
[2022-08-13] MEDS ORDERED: traMADol 50 MG TAB PO PRN (14:24)
[2022-08-13] MEDS ORDERED: ACETAMINOPHEN TAB 325 MG TAB PO PRN (14:24)
--- NOTE | 2022-08-13 14:28 | P.OP ---
Date of Procedure: 08/13/22 Procedure(s) Performed: PREOPERATIVE DIAGNOSIS: Acute calculus cholecystitis POSTOPERATIVE DIAGNOSIS: Same PROCEDURE: Laparoscopic cholecystectomy SURGEON: Kena EBL: 5 Amish ANESTHESIA: Gen. COMPLICATIONS: None OPERATIVE PROCEDURE: The patient was brought and placed on the operating room table in the supine position. The patient was placed under general anesthesia at that time. The abdomen was prepped and draped in the usual sterile fashion. A small vertical infraumbilical incision was made. The fascia was grasped with the Haris forceps. The fascia was retracted anteriorly. The Veress needle was advanced into the peritoneal cavity. The saline drop test was normal. Insufflation took place up to 15 mmHg. A 5 mm optical trocar was advanced and the peritoneal cavity. 2 additional 5 mm trochars were placed in the right upper quadrant under direct visualization. A 12 mm trocar was advanced into the epigastric incision site. The gallbladder was acutely inflamed with an edematous gallbladder wall. No evidence of ischemia. This did not require aspiration. The gallbladder was retracted superiorly and laterally. The peritoneum overlying the infundibulum was bluntly dissected. The patient's cystic duct was visualized. The junction between the cystic duct common and hepatic duct was identified. The critical view of safety was achieved after blunt dissection. The cystic duct was then divided after placement of 3 12 mm clips on the patient's side and one on the specimen side. The cystic artery was identified and clipped as well. A small vessel was seen along the gallbladder fossa and clipped as well. The gallbladder was then removed from the liver bed using electrocautery. The gallbladder was then removed from the epigastric trocar site with an Endo Catch bag. The gallbladder fossa was irrigated with saline. There was no evidence of any bleeding or biliary drainage seen. The fascia at the 12 millimeter site was closed using a Satish-Erik 0 Vicryl stitch. The trochars were then removed. The skin at all 4 sites was closed using a 4-0 Monocryl stitch. Skin glue was utilized on the incision sites. At the end of this procedure the sponge and needle counts were correct. DISPOSITION: Stable to the recovery room
[2022-08-13 14:44] LABS: Glucose,Whole Blood 198 mg/dL (70-110)
[2022-08-13] MEDS: KETOROLAC 15 MG/ML 1 ML VIAL IVP SCH ×2 (14:53→18:07)
[2022-08-13] MEDS: MORPHINE SULFATE 4 MG/ML SYRINGE IVP ONE ×2 (14:56→15:06)
[2022-08-13] MEDS ORDERED: diphenhydrAMINE 50 MG/ML 1 ML VIAL IVP ONE (15:24)
[2022-08-14] MEDS: PIPERACILLIN-TAZOBACTAM 3.375 GM in SODIUM CHLORIDE 0.9% 100 ML IVPB SCH ×2 (00:55→08:26)
[2022-08-14] MEDS: KETOROLAC 15 MG/ML 1 ML VIAL IVP SCH ×2 (00:55→06:07)
[2022-08-14] MEDS: HEPARIN SODIUM,PORCINE/PF 5,000 UNIT/0.5 ML SYRINGE SQ SCH ×2 (00:55→08:27)
[2022-08-14 07:55] VITALS: BP 99/66; PULSE 96; RESP 15; TEMP 98
--- NOTE | 2022-08-14 09:28 | P.DS ---
Providers Date of admission: 08/13/22 03:27 Expected date of discharge: 08/14/22 Attending physician: Abraham Escudero Primary care physician: Nanci Burnette MD Hospital Course: Discharge diagnosis 1. Acute calculus cholecystitis status post laparoscopic cholecystectomy Hospital course This is a 37-year-old female who presents to the hospital with complaints of right upper quadrant abdominal pain. Patient had a ultrasound completed that showed multiple gallstones and minimal pericholecystic fluid and correlate for acute cholecystitis. Patient is status post laparoscopic cholecystectomy for acute calculus cholecystitis. Patient tolerated surgery well. Her pain is controlled. She's tolerating diet. She has been up and ambulating. She is afebrile. She is stable for discharge. Please refer to chart for any further details. Physician Account Management Specialist note has been reviewed by physician. Signing provider agrees with the documented findings, assessment, and plan of care. Patient Condition at Discharge: Stable Plan - Discharge Summary Discharge Rx Participant: Yes New Discharge Prescriptions: New oxyCODONE HCL [OxyIR] 5 mg PO Q6H PRN 3 Days #12 tab PRN Reason: Pain Acetaminophen Tab [Tylenol Tab] 650 mg PO Q4H PRN #30 tablet PRN Reason: Pain Continue metFORMIN HCL 1,000 mg PO BID Levothyroxine Sodium [Synthroid] 25 mcg PO DAILY Aspirin EC [Ecotrin Low Dose] 81 mg PO DAILY Discharge Medication List Aspirin EC [Ecotrin Low Dose] 81 mg PO DAILY 08/13/22 [History] Levothyroxine Sodium [Synthroid] 25 mcg PO DAILY 08/13/22 [History] metFORMIN HCL 1,000 mg PO BID 08/13/22 [History] Acetaminophen Tab [Tylenol Tab] 650 mg PO Q4H PRN #30 tablet 08/14/22 [Rx] oxyCODONE HCL [OxyIR] 5 mg PO Q6H PRN 3 Days #12 tab 08/14/22 [Rx] Follow up Appointment(s)/Referral(s): Abraham Escudero MD [Medical Doctor] - 1 Week Nanci Burnette MD [Primary Care Provider] - 1-2 days
== END 2022-08-14 11:40 | disposition home or self-care (01) ==
LOC: EC 00:09 → 6NMEDSUR 03:27
PROVIDERS: ADMIT Surgery; ATTEND Surgery
DX: K80.12 Calculus of gallbladder with acute and chronic cholecystitis without obstruction (principal); E72.12 Methylenetetrahydrofolate reductase deficiency; E11.9 Type 2 diabetes mellitus without complications; E03.9 Hypothyroidism, unspecified; F41.9 Anxiety disorder, unspecified; F32.A Depression, unspecified; R16.0 Hepatomegaly, not elsewhere classified; Z79.82 Long term (current) use of aspirin; Z79.890 Hormone replacement therapy; Z79.84 Long term (current) use of oral hypoglycemic drugs; Z88.1 Allergy status to other antibiotic agents; Z91.030 Bee allergy status; Z91.013 Allergy to seafood; Z88.8 Allergy status to other drugs, medicaments and biological substances; Z91.018 Allergy to other foods; Z91.048 Other nonmedicinal substance allergy status; Z86.32 Personal history of gestational diabetes; Z98.891 History of uterine scar from previous surgery; Z86.16 Personal history of COVID-19; Z98.890 Other specified postprocedural states
CPT/HCPCS: 47562; 96376 ×2; 96361; 96374; 96375; 99285; 36415; 93005; 88304; 80053; 82150; 83605; 83690; 84484; 85025; 81025; 76705; G0378 ×2; J2543 ×2; J2250; J0330; J2270; J1200; J1100; J2710; J2405; J0696; J3010; J1170 ×2; J1885 ×2; J2704; C9113; J1644 ×2

== ENCOUNTER → 2023-01-19 | Outpatient (CLI) | payer BC ==
--- NOTE | 2023-01-20 08:53 | MM ---
Reason for Exam: Screening (asymptomatic). Patient History: Menarche at age 15. First Full-Term at age 35. Late child-bearing (after 30). 2004, Excisional Biopsy on the Left side. Maternal grandmother had breast cancer. Maternal grandmother had ovarian cancer. Paternal grandmother had breast cancer. Last menstrual period: 12/25/2022 Risk Values: Loan 5 year model risk: 0.9%. NCI Lifetime model risk: 15.3%. Prior Study Comparison: No prior studies available for comparison. Tissue Density: The breast tissue is heterogeneously dense. This may lower the sensitivity of mammography. Findings: Analyzed By CAD. There is no suspicious group of microcalcifications or new suspicious mass. Overall Assessment: Negative, BI-RAD 1 Management: Screening Mammogram of both breasts in [address] [facility] will attempt to contact patient to return for supplemental views and ultrasound if indicated. Patient should continue monthly self-breast exams. A clinical breast exam by your physician is recommended on an annual basis. This exam should not preclude additional follow-up of suspicious palpable abnormalities. Note on Loan scores and lifetime risk: 1. A Loan score greater than 3% is considered moderate risk. If this is the case, consider specialist referral to assess eligibility for a risk reducing agent. 2. If overall lifetime risk for the development of breast cancer is 20% or higher, the patient may qualify for future screening with alternating mammogram and breast MRI. Electronically signed and approved by: Jorden Morel DO
== END | disposition home or self-care (01) ==
LOC: RADMAMWWP 13:44
PROVIDERS: ATTEND Family Medicine
DX: Z12.31 Encounter for screening mammogram for malignant neoplasm of breast (principal); Z80.3 Family history of malignant neoplasm of breast
CPT/HCPCS: 77063; 77067

== ENCOUNTER → 2023-02-11 | Outpatient (CLI) | payer BC ==
[2023-02-11 11:01] LABS: Basophils # (A) 0.05 X 10*3/uL (0.00-0.10); Basophils % (A) 0.6 %; Eosinophils # (A) 0.51 X 10*3/uL (0.04-0.35); Eosinophils % (A) 6.4 %; HGB 14.3 g/dL (12.0-15.0); Lymphocytes # (A) 2.07 X 10*3/uL (0.90-5.00); MCH 27.6 pg (27.0-32.0); MCHC 32.5 g/dL (32.0-37.0); MCV 84.9 FL (80.0-97.0); Mean Platelet Volume 10.1 FL (9.5-12.2); Monocytes # (A) 0.48 X 10*3/uL (0.20-1.00); NRBC Per 100 WBC 0 X 10*3/uL (0.00-0.01); Neutrophils # (A) 4.84 X 10*3/uL (1.80-7.70); Neutrophils % (A) 60.7 %; Platelet Count 270 X 10*3/uL (140-440); RBC 5.18 X 10*6/uL (4.10-5.20); RDW 14.7 % (11.5-14.5); WBC 7.97 X 10*3/uL (4.50-10.00)
[2023-02-11 11:24] LABS: ALT 26 U/L (8-44); AST 18 U/L (13-35); Albumin 4.2 g/dL (3.8-4.9); Albumin/Globulin Ratio 1.75 Ratio (1.60-3.17); Alkaline Phosphatase 98 U/L (41-126); BUN/Creat Ratio 18.83 Ratio (12.00-20.00); Blood Urea Nitrogen 11.3 mg/dL (9.0-27.0); Calcium 9.4 mg/dL (8.7-10.3); Carbon Dioxide 22.8 mmol/L (21.6-31.8); Chloride 106 mmol/L (96-109); Chol/HDL Ratio 2.89 Ratio; Globulin 2.4 g/dL (1.6-3.3); Glucose 165 mg/dL (70-110); LDL Cholesterol,Calculated 64.7 mg/dL (0.0-131.0); Potassium 4.8 mmol/L (3.5-5.5); Sodium 139 mmol/L (135-145); Total Bilirubin 0.4 mg/dL (0.3-1.2); Total Protein 6.6 g/dL (6.2-8.2); VLDL Calculation 17.74 mg/dL (5.00-40.00)
== END | disposition home or self-care (01) ==
LOC: LABWHC1 07:20
PROVIDERS: ATTEND Physician Assistant Medical
DX: E03.9 Hypothyroidism, unspecified (principal); E11.9 Type 2 diabetes mellitus without complications
CPT/HCPCS: 36415; 80053; 80061; 84439; 84443; 84481; 85025; 86141

== ENCOUNTER → 2024-07-05 | Outpatient (CLI) | payer BC ==
--- NOTE | 2024-07-05 14:21 | MM ---
Reason for Exam: Screening (asymptomatic). Last mammogram was performed 1 year(s) and 6 month(s) ago. Patient History: Menarche at age 15. First Full-Term at age 35. Late child-bearing (after 30). Patient has history of breast feeding. 2004, Excisional Biopsy on the Left side. Maternal grandmother had breast cancer. Maternal grandmother had ovarian cancer. Paternal grandmother had breast cancer. Last menstrual period: 06/28/2024 Risk Values: Loan 5 year model risk: 1.1%. NCI Lifetime model risk: 15.1%. Prior Study Comparison: 01/19/2023 Bilateral MG 3D screening mammo w/cad, [facility]. Tissue Density: The breasts are heterogeneously dense, which may obscure small masses. Analyzed By CAD. Overall Assessment: Negative, BI-RAD 1 Management: Screening Mammogram of both breasts in 1 year. Electronically signed and approved by: Elias Thompson M.D.
== END | disposition home or self-care (01) ==
LOC: RADMAMWWP 13:27
PROVIDERS: ATTEND Family Medicine
DX: Z12.31 Encounter for screening mammogram for malignant neoplasm of breast (principal); R92.333 Mammographic heterogeneous density, bilateral breasts; Z80.3 Family history of malignant neoplasm of breast
CPT/HCPCS: 77063; 77067